=== PATIENT | male | born 1960 | race Caucasian/White ===

== ENCOUNTER 2018-07-09 13:05 | Emergency (ER) | payer OTHER ==
[2018-07-09 14:26] VITALS: BP 153/89; PULSE 102; TEMP 98.2
[2018-07-09] MEDS ORDERED: MORPHINE SULFATE 4 MG/ML SYRINGE IM STA (15:14)
[2018-07-09] MEDS ORDERED: DIAZEPAM 2 MG TAB PO STA (15:14)
--- NOTE | 2018-07-09 15:57 | XR ---
EXAMINATION TYPE: XR lumbar spine 2 or 3V DATE OF EXAM: 07/09/2018 CLINICAL HISTORY: Pain after fall injury today. TECHNIQUE: Frontal and lateral images of the lumbar spine are obtained. COMPARISON: None FINDINGS: There are 5 lumbar type vertebral bodies identified. The lumbar spine shows straightened alignment on lateral view with slight S-shaped scoliotic curvature on frontal view without evidence o f acute fracture or dislocation. Vertebral body heights are within normal limits. There is mild to mo derate multilevel spurring and disc space narrowing most prominent right L4-L5 level. The overlying soft tissue appears unremarkable. IMPRESSION: No acute fracture or dislocation is seen in the lumbar spine.
--- NOTE | 2018-07-09 16:23 | XR ---
EXAMINATION TYPE: XR Hip Complete RT DATE OF EXAM: 07/09/2018 CLINICAL HISTORY: Right hip pain TECHNIQUE: AP and frogleg views of the right hip are obtained. COMPARISON: None. FINDINGS: There is no acute fracture/dislocation evident in the right hip. The joint space in the r ight hip appears mildly narrowed in the cephalad direction with acetabular roof sclerosis and very fe w small subchondral cysts. The overlying soft tissue appears unremarkable. IMPRESSION: There is no acute fracture or dislocation in the right hip. Mild to moderate right femor al acetabular arthropathy.
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
[2018-07-09] MEDS ORDERED: HYDROcodone/APAP 5-325MG 1 EACH TAB PO STA (16:50)
[2018-07-09 17:06] VITALS: RESP 16
== END 2018-07-09 17:00 | disposition home or self-care (01) ==
LOC: EC 13:05
DX: S39.012A Strain of muscle, fascia and tendon of lower back, initial encounter (principal); I10 Essential (primary) hypertension; F17.200 Nicotine dependence, unspecified, uncomplicated; Z79.899 Other long term (current) drug therapy; W00.0XXA Fall on same level due to ice and snow, initial encounter
CPT/HCPCS: 72100; 73502; 99283; 96372; J2270

== ENCOUNTER → 2018-09-17 | Outpatient (CLI) | payer OTHER ==
--- NOTE | 2018-09-17 13:07 | US ---
EXAMINATION TYPE: US carotid duplex BILAT DATE OF EXAM: 09/17/2018 COMPARISON: NONE CLINICAL HISTORY: 58-year-old male I65.29 Calcification of carotid arteries. TECHNIQUE: Carotid duplex ultrasound examination. In direct Doppler criteria was utilized. FINDINGS: EXAM MEASUREMENTS: RIGHT: Peak Systolic Velocity (PSV) cm/sec ----- Right CCA: 92.4 ----- Right ICA: 102 ----- Right ECA: 177 ICA/CCA ratio: 1.10 RIGHT: End Diastole cm/sec ----- Right CCA: 19.0 ----- Right ICA: 21.1 ----- Right ECA: 21.8 LEFT: Peak Systolic Velocity (PSV) cm/sec ----- Left CCA: 82.9 ----- Left ICA: 121.0 ----- Left ECA: 130.0 ICA/CCA ratio: 1.45 LEFT: End Diastole cm/sec ----- Left CCA: 16.3 ----- Left ICA: 28.3 ----- Left ECA: 19.0 VERTEBRALS (direction of flow): Right Vertebral: Antegrade Left Vertebral: Antegrade Rhythm: Normal Mild apical scarring changes of the right bifurcation and moderate on the left. No significant veloci ty elevations seen in bilateral ICA's. IMPRESSION: No hemodynamically significant stenosis appreciated in either internal carotid artery. Criteria for Assigning % of Stenosis / Diameter reduction (Estimation based on the indirect measurements of the internal carotid artery velocities (ICA PSV). 1. Normal (no stenosis)=ICA PSV < 125 cm/s: ratio < 2.0: ICA EDV<40 cm/s. 2. Less than 50% stenosis=ICA PSV < 125 cm/s: ratio < 2.0: ICA EDV<40 cm/s. 3. 50 to 69% stenosis=ICA PSV of 125 to 230 cm/s: ration 2.0 ? 4.0: ICA EDV 40-100 cm/s. 4. Greater than 70% stenosis to near occlusion= ICA PSV > 230 cm/s: ratio > 4.0: ICA EDV > 100 cm/s. 5. Near occlusion= ICA PSV velocities may be low or undetectable: variable ratio and ICA EDV. 6. Total occlusion=unable to detect flow.
== END | disposition home or self-care (01) ==
LOC: RADUSWWP 12:04
PROVIDERS: ATTEND Family Medicine
DX: I65.29 Occlusion and stenosis of unspecified carotid artery (principal)
CPT/HCPCS: 93880

== ENCOUNTER 2019-05-09 11:00 | Day surgery (SDC) | payer OTHER ==
[2019-05-07 15:52] VITALS: BMI 24.4
[~2019-05-09 11:00] MED LIST: HYDROmorphone 0.5 MG/0.5 ML SYRINGE IVP PRN; LACTATED RINGERS 1,000 ML IV SCH; ONDANSETRON 4 MG/2 ML VIAL IVP PRN
[2019-05-09 11:20] VITALS: RESP 16; TEMP 98.2
[2019-05-09] MEDS ORDERED: LIDOCAINE 1% 20 ML VIAL (10MG/ML) FOR IV START INTRADERMA ONE (11:29)
[2019-05-09] MEDS ORDERED: PROPOFOL 10 MG/ML 20 ML VIAL IV ONE (12:02)
[2019-05-09 13:00] VITALS: BP 140/78; PULSE 52
--- NOTE | 2019-05-09 13:08 | P.PCN ---
Date of Procedure: 05/09/19 Description of Procedure: BRIEF HISTORY: Patient is a 59-year-old pleasant male scheduled for an elective colonoscopy as a part of a history of colon polyps. Last colonoscopy appears: Normal to his recollection that he has had colon polyps in the past. He also reports family history of colon cancer. No change in bowel habits, blood per rectum or abdominal pain reported. PROCEDURE PERFORMED: Colonoscopy with polypectomy. PREOPERATIVE DIAGNOSIS: Personal history of colon polyps, last colonoscopy 5 years ago. ESTIMATED BLOOD LOSS: Minimal. IV sedation per Anesthesia. PROCEDURE: After informed consent was obtained, the patient, was brought into the endoscopy unit. IV sedation was administered by Anesthesia under continuous monitoring. Digital rectal examination was normal. Initially the Olympus CF-190 flexible video colonoscope was then inserted in the rectum, gradually advanced into the cecum without any difficulty. Careful examination was performed as the scope was gradually being withdrawn. Ileocecal valve and the appendiceal orifice were visualized and appeared normal. Prep was excellent. Mucosa of the cecum, ascending colon, transverse colon, descending colon, sigmoid colon, and rectum appeared normal. Diminutive 3 mm sessile transverse colon polyp removed with cold forcep polypectomy. Retroflexion was performed in the rectum and no lesions were seen. The patient tolerated the procedure well. IMPRESSION: Normal-appearing colon from rectum to cecum. Diminutive 3 mm transverse colon polyp removed with cold forceps. RECOMMENDATIONS: Findings of this examination were discussed with the patient and his . Okay to resume diet. Okay to resume medications. Await pathology from polypectomy. Anticipate repeat colonoscopy in 5 years given his personal history of colon polyps pending pathology from polypectomy.
== END 2019-05-09 13:15 | disposition home or self-care (01) ==
LOC: ORWHC2ENDO 11:00
PROVIDERS: ATTEND Internal Medicine
DX: Z12.11 Encounter for screening for malignant neoplasm of colon (principal); K63.5 Polyp of colon; I10 Essential (primary) hypertension; Z86.010 Personal history of colon polyps; Z80.0 Family history of malignant neoplasm of digestive organs; Z87.891 Personal history of nicotine dependence; Z79.899 Other long term (current) drug therapy; Z98.890 Other specified postprocedural states
CPT/HCPCS: 88305; 45380; J2704

== ENCOUNTER 2021-01-04 19:24 | Emergency (ER) | payer OTHER ==
[2021-01-04 19:28] VITALS: TEMP 97.8
[2021-01-04] MEDS ORDERED: IBUPROFEN 800 MG TAB PO STA (19:33)
[2021-01-04] MEDS ORDERED: MORPHINE SULFATE 4 MG/ML SYRINGE IM STA (19:33)
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
[2021-01-04 20:05] VITALS: RESP 16
--- NOTE | 2021-01-04 20:21 | XR ---
EXAMINATION TYPE: XR wrist complete LT DATE OF EXAM: 01/04/2021 COMPARISON: NONE HISTORY: Fall. Pain TECHNIQUE: 3 views FINDINGS: There is mildly impacted transverse comminuted fracture distal radial metaphysis. There is no dislocation. Carpal bones are intact. Distal ulna is intact. IMPRESSION: Acute comminuted distal radial fracture with extension to the articular surface.
[2021-01-04] MEDS ORDERED: ACET/COD 300 MG/30 MG STARTER PACK 6 TAB BTL PO STA (21:09)
[2021-01-04 21:19] VITALS: BP 118/94; PULSE 84
== END 2021-01-04 21:19 | disposition home or self-care (01) ==
LOC: EC 19:24
DX: S52.502A Unspecified fracture of the lower end of left radius, initial encounter for closed fracture (principal); I10 Essential (primary) hypertension; Z79.899 Other long term (current) drug therapy; Z79.1 Long term (current) use of non-steroidal anti-inflammatories (NSAID); Z87.891 Personal history of nicotine dependence; W17.89XA Other fall from one level to another, initial encounter
CPT/HCPCS: 73110; 96372; 99283; 29125; J2270

== ENCOUNTER 2021-08-04 11:43 | Day surgery (SDC) | payer OTHER ==
[2021-07-30 14:21] VITALS: BMI 28.5
[~2021-08-04 11:43] MED LIST changes: -HYDROmorphone 0.5 MG/0.5 ML SYRINGE IVP PRN; +LIDOCAINE 1% (10MG/ML) FOR IV START INTRADERMA PRN; -ONDANSETRON 4 MG/2 ML VIAL IVP PRN
[2021-08-04 12:07] VITALS: RESP 16; TEMP 98.3
[2021-08-04] MEDS ORDERED: LIDOCAINE 1% INJ 10MG/ML (20 ML MDV) ONE (13:00)
[2021-08-04] MEDS ORDERED: PROPOFOL 10 MG/ML 20 ML VIAL IV ONE (13:00)
[2021-08-04] MEDS ORDERED: MIDAZOLAM 2 MG/2 ML VIAL ONE (13:00)
--- NOTE | 2021-08-04 13:09 | P.PCN ---
Date of Procedure: 08/04/21 Procedure(s) Performed: BRIEF HISTORY: Patient is a 61-year-old, pleasant, white male scheduled for an upper endoscopy as a part of evaluation of heartburn and throat irritation 1 for the last few months duration. PROCEDURE PERFORMED: Esophagogastroduodenoscopy with biopsy. PREOPERATIVE DIAGNOSIS: Heartburn and throat irritation. IV sedation per anesthesia. PROCEDURE: After informed consent was obtained, the patient was brought into the endoscopy unit. IV sedation was administered by Anesthesia under continuous monitoring. Initially the Olympus GIF-140 video endoscope was inserted into the mouth. Esophagus intubated without any difficulty. It was gradually advanced into the stomach and duodenum and carefully examined. The bulb and the second part of the duodenum appeared normal. The scope at this time was withdrawn to the stomach, adequately insufflated with air, and upon careful examination, mucosa of the antrum had mottling of the mucosa and biopsies were done from this area. The body, cardia and the fundus appeared normal. The scope was then withdrawn into the esophagus. The GE junction was located at 41 cm from the incisors. There was circumferential erythema as well as one superficial erosion at the GE junction consistent with LA grade B reflux esophagitis. There was some thickened folds at the GE junction which was also biopsied. There was mild narrowing of the GE junction but didn't impede the passage of the scope. The rest of the esophagus appearered normal. The patient tolerated the procedure well. IMPRESSION: 1. Circumferential erythema of the GE junction with one superficial erosions consistent with LA grade B reflux esophagitis. 2. Early distal esophageal stricture. 3. Mild antral gastritis RECOMMENDATIONS: The findings of this examination were discussed with the patient as well as his family.. He was advised to follow with the biopsy results. In the meantime I suggested that he started on Pepcid 20 mg twice daily and follow antireflux measures.
[2021-08-04 13:29] VITALS: BP 164/89; PULSE 52
== END 2021-08-04 13:43 | disposition home or self-care (01) ==
LOC: ORWHC2ENDO 11:43
PROVIDERS: ATTEND Internal Medicine Gastroenterology
DX: K29.50 Unspecified chronic gastritis without bleeding (principal); K21.00 Gastro-esophageal reflux disease with esophagitis, without bleeding; K22.2 Esophageal obstruction; I10 Essential (primary) hypertension; Z93.0 Tracheostomy status; Z79.899 Other long term (current) drug therapy
CPT/HCPCS: 88305; 43239; J2250; J2001; J2704